=== PATIENT | male | born 1945 | race Caucasian/White ===

== ENCOUNTER 2025-03-27 11:32 | Observation (INO) | payer MEDICARE, OTHER ==
[2025-03-27 12:00] LABS: BASOPHILS ABSOLUTE AUTO 0.04 K/uL (0.00-0.20); BASOPHILS PERCENT AUTO 0.4 % (0.0-2.0); EOSINOPHILS ABSOLUTE AUTO 0.29 K/uL (0.00-0.50); EOSINOPHILS PERCENT AUTO 3.2 % (0.0-5.0); IMMATURE GRAN ABSOLUTE AUTO 0.06 10^3/uL (0.00-0.04); IMMATURE GRAN PERCENT AUTO 0.7 % (0.0-0.4); LYMPHOCYTES ABSOLUTE AUTO 1.31 K/uL (0.50-3.50); LYMPHOCYTES PERCENT AUTO 14.4 % (10.0-50.0); MONOCYTES ABSOLUTE AUTO 0.81 K/uL (0.00-1.00); MONOCYTES PERCENT AUTO 8.9 % (2.0-14.0); NEUTROPHILS ABSOLUTE AUTO 6.57 K/uL (1.40-7.00); NEUTROPHILS PERCENT AUTO 72.4 % (45.0-80.0); PLATELET COUNT,PLT 230 K/uL (150-350); RED BLOOD CELL COUNT 3.79 M/uL (4.33-5.41); RED CELL DISTRIBUTION WIDTH 15.1 % (11.2-14.1); WHITE BLOOD CELL COUNT,WBC 9.1 K/uL (4.0-10.2)
[2025-03-27 12:14] LABS: ALANINE AMINOTRANSFERASE,ALT 14 U/L (12-78); ASPARTATE AMNIOTRANSFERASE,AST 21 U/L (15-37); BILIRUBIN TOTAL 0.6 mg/dL (0.2-1.0); BLOOD UREA NITROGEN,BUN 23 mg/dL (7-18); CARBON DIOXIDE,CO2 23.9 mmol/L (21.0-32.0); CHLORIDE,CL 105 mmol/L (98-107); CREATININE 1.32 mg/dL (0.51-1.17); GLUCOSE RANDOM 114 mg/dL (70-99); POTASSIUM,K 4.2 mmol/L (3.5-5.1); PROTEIN TOTAL,TP 7.2 g/dL (6.4-8.2); SODIUM,NA 141 mmol/L (136-145)
[2025-03-27 12:15] LABS: ESTIMATED GFR 54 mL/min (>=60)
[2025-03-27 12:36] LABS: INR 2.0
[2025-03-27] MEDS: Ondansetron 4 MG/2 ML SDV IVPUSH ONE (12:55)
[2025-03-27] MEDS ORDERED: Ondansetron 4 MG/2 ML SDV IVPUSH PRN (14:06)
[2025-03-27] MEDS: Iopamidol 755 Mg/ML 100 ML Bottle IVPUSH ONE (16:14)
[2025-03-27] MEDS: Warfarin** 1 MG TABLET PO SCH (21:32)
[2025-03-28 07:07] LABS: BASOPHILS ABSOLUTE AUTO 0.03 K/uL (0.00-0.20); BASOPHILS PERCENT AUTO 0.4 % (0.0-2.0); EOSINOPHILS ABSOLUTE AUTO 0.17 K/uL (0.00-0.50); EOSINOPHILS PERCENT AUTO 2.5 % (0.0-5.0); IMMATURE GRAN ABSOLUTE AUTO 0.02 10^3/uL (0.00-0.04); IMMATURE GRAN PERCENT AUTO 0.3 % (0.0-0.4); LYMPHOCYTES ABSOLUTE AUTO 0.73 K/uL (0.50-3.50); LYMPHOCYTES PERCENT AUTO 10.7 % (10.0-50.0); MONOCYTES ABSOLUTE AUTO 0.68 K/uL (0.00-1.00); MONOCYTES PERCENT AUTO 9.9 % (2.0-14.0); NEUTROPHILS ABSOLUTE AUTO 5.22 K/uL (1.40-7.00); NEUTROPHILS PERCENT AUTO 76.2 % (45.0-80.0); PLATELET COUNT,PLT 189 K/uL (150-350); RED BLOOD CELL COUNT 3.48 M/uL (4.33-5.41); RED CELL DISTRIBUTION WIDTH 15.3 % (11.2-14.1); WHITE BLOOD CELL COUNT,WBC 6.9 K/uL (4.0-10.2)
[2025-03-28 07:28] VITALS: BP 103/68; PULSE 82
[2025-03-28 07:36] LABS: BLOOD UREA NITROGEN,BUN 23.0 mg/dL (7-18); CARBON DIOXIDE,CO2 25.7 mmol/L (21.0-32.0); CHLORIDE,CL 106.0 mmol/L (98-107); CREATININE 1.34 mg/dL (0.51-1.17); EST CRCL DRUG DOSING (CG) 44.64 mL/min; GLUCOSE RANDOM 97.0 mg/dL (70-99); POTASSIUM,K 3.5 mmol/L (3.5-5.1); SODIUM,NA 140.0 mmol/L (136-145)
[2025-03-28 07:44] LABS: ESTIMATED GFR 53.0 mL/min (>=60)
[2025-03-28] MEDS ORDERED: LEVOTHYROXINE SODIUM 137 MCG PO SCH (08:00)
[2025-03-28] MEDS: Warfarin** 1 MG TABLET PO SCH (09:07)
== END 2025-03-28 11:30 | disposition home or self-care (01) ==
LOC: LL.ED 11:32 → LL.MS 13:24
PROVIDERS: ADMIT Emergency Medicine; ATTEND Emergency Medicine
DX: S06.0XAA Concussion with loss of consciousness status unknown, initial encounter (principal); J44.9 Chronic obstructive pulmonary disease, unspecified; E03.9 Hypothyroidism, unspecified; I12.9 Hypertensive chronic kidney disease with stage 1 through stage 4 chronic kidney disease, or unspecified chronic kidney disease; N18.30 Chronic kidney disease, stage 3 unspecified; E66.9 Obesity, unspecified; Z79.890 Hormone replacement therapy; Z79.899 Other long term (current) drug therapy; W01.0XXA Fall on same level from slipping, tripping and stumbling without subsequent striking against object, initial encounter
CPT/HCPCS: 36415; 70450; 71046; 72040; 80048; 80053; 82947; 83605; 83735; 84484; 85025; 85379; 85610; 93005; 93010; 96361; 96374; 99223; 99238; 99285-25; A9270-GY; G0378; J2405; J7030

== ENCOUNTER 2025-04-20 11:03 | Emergency (ER) | payer MEDICARE, OTHER ==
[2025-04-20 11:20] LABS: BASOPHILS ABSOLUTE AUTO 0.02 K/uL (0.00-0.20); BASOPHILS PERCENT AUTO 0.2 % (0.0-2.0); EOSINOPHILS ABSOLUTE AUTO 0.09 K/uL (0.00-0.50); EOSINOPHILS PERCENT AUTO 0.7 % (0.0-5.0); IMMATURE GRAN ABSOLUTE AUTO 0.03 10^3/uL (0.00-0.04); IMMATURE GRAN PERCENT AUTO 0.2 % (0.0-0.4); LYMPHOCYTES ABSOLUTE AUTO 0.69 K/uL (0.50-3.50); LYMPHOCYTES PERCENT AUTO 5.5 % (10.0-50.0); MONOCYTES ABSOLUTE AUTO 0.58 K/uL (0.00-1.00); MONOCYTES PERCENT AUTO 4.6 % (2.0-14.0); NEUTROPHILS ABSOLUTE AUTO 11.09 K/uL (1.40-7.00); NEUTROPHILS PERCENT AUTO 88.8 % (45.0-80.0); PLATELET COUNT,PLT 292 K/uL (150-350); RED BLOOD CELL COUNT 4.05 M/uL (4.33-5.41); RED CELL DISTRIBUTION WIDTH 15.9 % (11.2-14.1); WHITE BLOOD CELL COUNT,WBC 12.5 K/uL (4.0-10.2)
[2025-04-20] MEDS ORDERED: Naloxone 0.4 MG/ML SDV IVPUSH PRN (11:21)
[2025-04-20 11:45] LABS: ALANINE AMINOTRANSFERASE,ALT 10 U/L (12-78); ASPARTATE AMNIOTRANSFERASE,AST 11 U/L (15-37); BILIRUBIN TOTAL 0.6 mg/dL (0.2-1.0); BLOOD UREA NITROGEN,BUN 31 mg/dL (7-18); CARBON DIOXIDE,CO2 20.1 mmol/L (21.0-32.0); CHLORIDE,CL 102 mmol/L (98-107); CREATININE 1.62 mg/dL (0.51-1.17); GLUCOSE RANDOM 117 mg/dL (70-99); POTASSIUM,K 4.2 mmol/L (3.5-5.1); PROTEIN TOTAL,TP 7.9 g/dL (6.4-8.2); PTT,PARTIAL THROMBOPLSTIN TIME 30.5 SEC (23.8-34.4); SODIUM,NA 138 mmol/L (136-145)
[2025-04-20 11:56] LABS: INR 2.9 (0.9-1.1)
[2025-04-20] MEDS: Sodium Chloride 0.9% 10 ML Syringe FLUSH PRN (12:01)
[2025-04-20 12:03] LABS: ESTIMATED GFR 42 mL/min (>=60)
[2025-04-20] MEDS: Ondansetron 4 MG/2 ML SDV IVPUSH ONE (12:59)
[2025-04-20] MEDS: Iopamidol 755 Mg/ML 100 ML Bottle IVPUSH ONE (13:39)
[2025-04-20 16:13] VITALS: BP 135/78; PULSE 95
== END 2025-04-20 14:12 ==
LOC: LL.ED 11:03
DX: S72.001A Fracture of unspecified part of neck of right femur, initial encounter for closed fracture (principal); D50.9 Iron deficiency anemia, unspecified; Z86.711 Personal history of pulmonary embolism; I12.9 Hypertensive chronic kidney disease with stage 1 through stage 4 chronic kidney disease, or unspecified chronic kidney disease; N18.9 Chronic kidney disease, unspecified; J44.9 Chronic obstructive pulmonary disease, unspecified; E03.9 Hypothyroidism, unspecified; Z79.890 Hormone replacement therapy; Z79.01 Long term (current) use of anticoagulants; Z86.73 Personal history of transient ischemic attack (TIA), and cerebral infarction without residual deficits; Z79.899 Other long term (current) drug therapy; W18.39XA Other fall on same level, initial encounter; Y93.89 Activity, other specified
CPT/HCPCS: 36415; 70450; 70496; 70498; 71045; 80053; 84443; 84484; 85025; 85610; 85730; 93005; 93010; 96361; 96374; 96375; 96376; 99284; 99285-25; J1171; J2405; J7030; J7040; Q9967

== ENCOUNTER 2025-05-02 12:45 | Inpatient (IN) | payer MEDICARE, OTHER ==
[2025-05-02] MEDS ORDERED: Ondansetron 4 MG Tab.DIS PO PRN (13:55)
[2025-05-03] MEDS: Polyethylene Glycol 3350 Powder 510 GM Bot PO SCH (08:31)
[2025-05-03] MEDS: Warfarin** 1 MG TABLET PO ONE (17:57)
[2025-05-04 08:25] LABS: INR 1.6 (0.9-1.1)
[2025-05-05 08:22] LABS: BASOPHILS ABSOLUTE AUTO 0.02 K/uL (0.00-0.20); BASOPHILS PERCENT AUTO 0.3 % (0.0-2.0); EOSINOPHILS ABSOLUTE AUTO 0.21 K/uL (0.00-0.50); EOSINOPHILS PERCENT AUTO 3.0 % (0.0-5.0); IMMATURE GRAN ABSOLUTE AUTO 0.08 10^3/uL (0.00-0.04); IMMATURE GRAN PERCENT AUTO 1.1 % (0.0-0.4); LYMPHOCYTES ABSOLUTE AUTO 0.70 K/uL (0.50-3.50); LYMPHOCYTES PERCENT AUTO 10.0 % (10.0-50.0); MONOCYTES ABSOLUTE AUTO 0.64 K/uL (0.00-1.00); MONOCYTES PERCENT AUTO 9.2 % (2.0-14.0); NEUTROPHILS ABSOLUTE AUTO 5.33 K/uL (1.40-7.00); NEUTROPHILS PERCENT AUTO 76.4 % (45.0-80.0); PLATELET COUNT,PLT 402 K/uL (150-350); RED BLOOD CELL COUNT 3.16 M/uL (4.33-5.41); RED CELL DISTRIBUTION WIDTH 18.8 % (11.2-14.1); WHITE BLOOD CELL COUNT,WBC 7.0 K/uL (4.0-10.2)
[2025-05-05] MEDS: Polyethylene Glycol 3350 Powder 510 GM Bot PO PRN (11:33)
[2025-05-05] MEDS: Warfarin** 1 MG TABLET PO SCH (17:17)
[2025-05-07] MEDS: Menthol 10%/Methyl Salicylate 15% 85 GM Tube TOP PRN
[2025-05-07 09:28] LABS: INR 2.0 (0.9-1.1)
[2025-05-07] MEDS: Warfarin** 1 MG TABLET PO SCH (17:39)
[2025-05-07] MEDS: REMOVE LIDOCAINE TRDERM SCH (20:32)
[2025-05-09 07:43] LABS: BASOPHILS ABSOLUTE AUTO 0.02 K/uL (0.00-0.20); BASOPHILS PERCENT AUTO 0.3 % (0.0-2.0); EOSINOPHILS ABSOLUTE AUTO 0.05 K/uL (0.00-0.50); EOSINOPHILS PERCENT AUTO 0.6 % (0.0-5.0); IMMATURE GRAN ABSOLUTE AUTO 0.02 10^3/uL (0.00-0.04); IMMATURE GRAN PERCENT AUTO 0.3 % (0.0-0.4); LYMPHOCYTES ABSOLUTE AUTO 0.46 K/uL (0.50-3.50); LYMPHOCYTES PERCENT AUTO 5.9 % (10.0-50.0); MONOCYTES ABSOLUTE AUTO 0.75 K/uL (0.00-1.00); MONOCYTES PERCENT AUTO 9.7 % (2.0-14.0); NEUTROPHILS ABSOLUTE AUTO 6.45 K/uL (1.40-7.00); NEUTROPHILS PERCENT AUTO 83.2 % (45.0-80.0); PLATELET COUNT,PLT 356 K/uL (150-350); RED BLOOD CELL COUNT 3.07 M/uL (4.33-5.41); RED CELL DISTRIBUTION WIDTH 19.1 % (11.2-14.1); WHITE BLOOD CELL COUNT,WBC 7.8 K/uL (4.0-10.2)
[2025-05-09 08:02] LABS: ALANINE AMINOTRANSFERASE,ALT 10.0 U/L (12-78); ASPARTATE AMNIOTRANSFERASE,AST 14.0 U/L (15-37); BILIRUBIN TOTAL 0.4 mg/dL (0.2-1.0); BLOOD UREA NITROGEN,BUN 16.0 mg/dL (7-18); CARBON DIOXIDE,CO2 26.6 mmol/L (21.0-32.0); CHLORIDE,CL 101.0 mmol/L (98-107); CREATININE 1.21 mg/dL (0.51-1.17); EST CRCL DRUG DOSING (CG) 48.6 mL/min; GLUCOSE RANDOM 93.0 mg/dL (70-99); POTASSIUM,K 4.4 mmol/L (3.5-5.1); PROTEIN TOTAL,TP 6.4 g/dL (6.4-8.2); SODIUM,NA 135.0 mmol/L (136-145)
[2025-05-09 08:03] LABS: ESTIMATED GFR 60.0 mL/min (>=60)
[2025-05-10 07:36] LABS: BASOPHILS ABSOLUTE AUTO 0.02 K/uL (0.00-0.20); BASOPHILS PERCENT AUTO 0.3 % (0.0-2.0); EOSINOPHILS ABSOLUTE AUTO 0.11 K/uL (0.00-0.50); EOSINOPHILS PERCENT AUTO 1.8 % (0.0-5.0); IMMATURE GRAN ABSOLUTE AUTO 0.03 10^3/uL (0.00-0.04); IMMATURE GRAN PERCENT AUTO 0.5 % (0.0-0.4); LYMPHOCYTES ABSOLUTE AUTO 0.60 K/uL (0.50-3.50); LYMPHOCYTES PERCENT AUTO 9.6 % (10.0-50.0); MONOCYTES ABSOLUTE AUTO 0.67 K/uL (0.00-1.00); MONOCYTES PERCENT AUTO 10.7 % (2.0-14.0); NEUTROPHILS ABSOLUTE AUTO 4.82 K/uL (1.40-7.00); NEUTROPHILS PERCENT AUTO 77.1 % (45.0-80.0); PLATELET COUNT,PLT 406 K/uL (150-350); RED BLOOD CELL COUNT 3.11 M/uL (4.33-5.41); RED CELL DISTRIBUTION WIDTH 19.3 % (11.2-14.1); WHITE BLOOD CELL COUNT,WBC 6.3 K/uL (4.0-10.2)
[2025-05-11 07:34] LABS: BASOPHILS ABSOLUTE AUTO 0.02 K/uL (0.00-0.20); BASOPHILS PERCENT AUTO 0.3 % (0.0-2.0); EOSINOPHILS ABSOLUTE AUTO 0.14 K/uL (0.00-0.50); EOSINOPHILS PERCENT AUTO 2.2 % (0.0-5.0); IMMATURE GRAN ABSOLUTE AUTO 0.03 10^3/uL (0.00-0.04); IMMATURE GRAN PERCENT AUTO 0.5 % (0.0-0.4); LYMPHOCYTES ABSOLUTE AUTO 0.75 K/uL (0.50-3.50); LYMPHOCYTES PERCENT AUTO 11.8 % (10.0-50.0); MONOCYTES ABSOLUTE AUTO 0.67 K/uL (0.00-1.00); MONOCYTES PERCENT AUTO 10.5 % (2.0-14.0); NEUTROPHILS ABSOLUTE AUTO 4.76 K/uL (1.40-7.00); NEUTROPHILS PERCENT AUTO 74.7 % (45.0-80.0); PLATELET COUNT,PLT 407 K/uL (150-350); RED BLOOD CELL COUNT 3.18 M/uL (4.33-5.41); RED CELL DISTRIBUTION WIDTH 19.4 % (11.2-14.1); WHITE BLOOD CELL COUNT,WBC 6.4 K/uL (4.0-10.2)
[2025-05-15 07:31] LABS: BASOPHILS ABSOLUTE AUTO 0.04 K/uL (0.00-0.20); BASOPHILS PERCENT AUTO 0.7 % (0.0-2.0); EOSINOPHILS ABSOLUTE AUTO 0.31 K/uL (0.00-0.50); EOSINOPHILS PERCENT AUTO 5.2 % (0.0-5.0); IMMATURE GRAN ABSOLUTE AUTO 0.14 10^3/uL (0.00-0.04); IMMATURE GRAN PERCENT AUTO 2.4 % (0.0-0.4); LYMPHOCYTES ABSOLUTE AUTO 0.95 K/uL (0.50-3.50); LYMPHOCYTES PERCENT AUTO 16.1 % (10.0-50.0); MONOCYTES ABSOLUTE AUTO 0.35 K/uL (0.00-1.00); MONOCYTES PERCENT AUTO 5.9 % (2.0-14.0); NEUTROPHILS ABSOLUTE AUTO 4.12 K/uL (1.40-7.00); NEUTROPHILS PERCENT AUTO 69.7 % (45.0-80.0); PLATELET COUNT,PLT 388 K/uL (150-350); RED BLOOD CELL COUNT 3.30 M/uL (4.33-5.41); RED CELL DISTRIBUTION WIDTH 19.2 % (11.2-14.1); WHITE BLOOD CELL COUNT,WBC 5.9 K/uL (4.0-10.2)
[2025-05-15 08:06] LABS: INR 3.5 (0.9-1.1)
[2025-05-16 09:31] LABS: INR 3.6
[2025-05-17 07:44] LABS: BASOPHILS ABSOLUTE AUTO 0.01 K/uL (0.00-0.20); BASOPHILS PERCENT AUTO 0.1 % (0.0-2.0); EOSINOPHILS ABSOLUTE AUTO 0.27 K/uL (0.00-0.50); EOSINOPHILS PERCENT AUTO 3.8 % (0.0-5.0); IMMATURE GRAN ABSOLUTE AUTO 0.07 10^3/uL (0.00-0.04); IMMATURE GRAN PERCENT AUTO 1.0 % (0.0-0.4); LYMPHOCYTES ABSOLUTE AUTO 1.08 K/uL (0.50-3.50); LYMPHOCYTES PERCENT AUTO 15.2 % (10.0-50.0); MONOCYTES ABSOLUTE AUTO 0.47 K/uL (0.00-1.00); MONOCYTES PERCENT AUTO 6.6 % (2.0-14.0); NEUTROPHILS ABSOLUTE AUTO 5.22 K/uL (1.40-7.00); NEUTROPHILS PERCENT AUTO 73.3 % (45.0-80.0); PLATELET COUNT,PLT 384 K/uL (150-350); RED BLOOD CELL COUNT 3.51 M/uL (4.33-5.41); RED CELL DISTRIBUTION WIDTH 19.1 % (11.2-14.1); WHITE BLOOD CELL COUNT,WBC 7.1 K/uL (4.0-10.2)
[2025-05-17 08:51] LABS: APPEARANCE,URINE CLOUDY; GLUCOSE,URINE NEGATIVE (NEGATIVE); OCCULT BLOOD,URINE TRACE-INTACT (NEGATIVE)
[2025-05-17 08:58] LABS: EPITHELIAL CELLS,URINE NOT SEEN /LPF
[2025-05-17 09:34] LABS: INR 2.2 (0.9-1.1)
[2025-05-21 10:02] LABS: INR 2.0
[2025-05-22 07:45] LABS: BASOPHILS ABSOLUTE AUTO 0.03 K/uL (0.00-0.20); BASOPHILS PERCENT AUTO 0.4 % (0.0-2.0); EOSINOPHILS ABSOLUTE AUTO 0.19 K/uL (0.00-0.50); EOSINOPHILS PERCENT AUTO 2.8 % (0.0-5.0); IMMATURE GRAN ABSOLUTE AUTO 0.03 10^3/uL (0.00-0.04); IMMATURE GRAN PERCENT AUTO 0.4 % (0.0-0.4); LYMPHOCYTES ABSOLUTE AUTO 0.73 K/uL (0.50-3.50); LYMPHOCYTES PERCENT AUTO 10.9 % (10.0-50.0); MONOCYTES ABSOLUTE AUTO 0.76 K/uL (0.00-1.00); MONOCYTES PERCENT AUTO 11.3 % (2.0-14.0); NEUTROPHILS ABSOLUTE AUTO 4.96 K/uL (1.40-7.00); NEUTROPHILS PERCENT AUTO 74.2 % (45.0-80.0); PLATELET COUNT,PLT 275 K/uL (150-350); RED BLOOD CELL COUNT 3.19 M/uL (4.33-5.41); RED CELL DISTRIBUTION WIDTH 19.2 % (11.2-14.1); WHITE BLOOD CELL COUNT,WBC 6.7 K/uL (4.0-10.2)
[2025-05-22] MEDS: Polyethylene Glycol 3350 Powder 510 GM Bot PO SCH (07:55)
[2025-05-25 08:07] LABS: INR 1.8 (0.9-1.1)
[2025-05-25 08:29] LABS: BASOPHILS ABSOLUTE AUTO 0.03 K/uL (0.00-0.20); BASOPHILS PERCENT AUTO 0.6 % (0.0-2.0); EOSINOPHILS ABSOLUTE AUTO 0.19 K/uL (0.00-0.50); EOSINOPHILS PERCENT AUTO 3.6 % (0.0-5.0); IMMATURE GRAN ABSOLUTE AUTO 0.01 10^3/uL (0.00-0.04); IMMATURE GRAN PERCENT AUTO 0.2 % (0.0-0.4); LYMPHOCYTES ABSOLUTE AUTO 0.61 K/uL (0.50-3.50); LYMPHOCYTES PERCENT AUTO 11.5 % (10.0-50.0); MONOCYTES ABSOLUTE AUTO 0.54 K/uL (0.00-1.00); MONOCYTES PERCENT AUTO 10.2 % (2.0-14.0); NEUTROPHILS ABSOLUTE AUTO 3.94 K/uL (1.40-7.00); NEUTROPHILS PERCENT AUTO 73.9 % (45.0-80.0); PLATELET COUNT,PLT 292 K/uL (150-350); RED BLOOD CELL COUNT 3.04 M/uL (4.33-5.41); RED CELL DISTRIBUTION WIDTH 19.0 % (11.2-14.1); WHITE BLOOD CELL COUNT,WBC 5.3 K/uL (4.0-10.2)
[2025-05-28 09:08] LABS: INR 2.4
[2025-05-29 07:58] LABS: BASOPHILS ABSOLUTE AUTO 0.03 K/uL (0.00-0.20); BASOPHILS PERCENT AUTO 0.5 % (0.0-2.0); EOSINOPHILS ABSOLUTE AUTO 0.25 K/uL (0.00-0.50); EOSINOPHILS PERCENT AUTO 4.3 % (0.0-5.0); IMMATURE GRAN ABSOLUTE AUTO 0.02 10^3/uL (0.00-0.04); IMMATURE GRAN PERCENT AUTO 0.3 % (0.0-0.4); LYMPHOCYTES ABSOLUTE AUTO 0.69 K/uL (0.50-3.50); LYMPHOCYTES PERCENT AUTO 12.0 % (10.0-50.0); MONOCYTES ABSOLUTE AUTO 0.57 K/uL (0.00-1.00); MONOCYTES PERCENT AUTO 9.9 % (2.0-14.0); NEUTROPHILS ABSOLUTE AUTO 4.20 K/uL (1.40-7.00); NEUTROPHILS PERCENT AUTO 73.0 % (45.0-80.0); PLATELET COUNT,PLT 227 K/uL (150-350); RED BLOOD CELL COUNT 3.42 M/uL (4.33-5.41); RED CELL DISTRIBUTION WIDTH 20.1 % (11.2-14.1); WHITE BLOOD CELL COUNT,WBC 5.8 K/uL (4.0-10.2)
[2025-06-04 07:29] LABS: BASOPHILS ABSOLUTE AUTO 0.03 K/uL (0.00-0.20); BASOPHILS PERCENT AUTO 0.5 % (0.0-2.0); EOSINOPHILS ABSOLUTE AUTO 0.29 K/uL (0.00-0.50); EOSINOPHILS PERCENT AUTO 4.8 % (0.0-5.0); IMMATURE GRAN ABSOLUTE AUTO 0.01 10^3/uL (0.00-0.04); IMMATURE GRAN PERCENT AUTO 0.2 % (0.0-0.4); LYMPHOCYTES ABSOLUTE AUTO 0.75 K/uL (0.50-3.50); LYMPHOCYTES PERCENT AUTO 12.5 % (10.0-50.0); MONOCYTES ABSOLUTE AUTO 0.60 K/uL (0.00-1.00); MONOCYTES PERCENT AUTO 10.0 % (2.0-14.0); NEUTROPHILS ABSOLUTE AUTO 4.31 K/uL (1.40-7.00); NEUTROPHILS PERCENT AUTO 72.0 % (45.0-80.0); PLATELET COUNT,PLT 226 K/uL (150-350); RED BLOOD CELL COUNT 3.32 M/uL (4.33-5.41); RED CELL DISTRIBUTION WIDTH 19.6 % (11.2-14.1); WHITE BLOOD CELL COUNT,WBC 6.0 K/uL (4.0-10.2)
[2025-06-04 09:27] LABS: INR 2.0 (0.9-1.1)
[2025-06-08 08:40] LABS: INR 2.0 (0.9-1.1)
[2025-06-08 08:57] VITALS: BP 101/61; PULSE 79
== END 2025-06-08 09:50 | disposition home health service (06) | DRG 560 ==
LOC: LL.SWG 12:45
PROVIDERS: ADMIT Physician Assistant; ATTEND Nurse Practitioner Family
DX: S72.001D Fracture of unspecified part of neck of right femur, subsequent encounter for closed fracture with routine healing (principal); D62 Acute posthemorrhagic anemia; E44.0 Moderate protein-calorie malnutrition; Z66 Do not resuscitate; N39.0 Urinary tract infection, site not specified; Z96.641 Presence of right artificial hip joint; W19.XXXD Unspecified fall, subsequent encounter; R13.12 Dysphagia, oropharyngeal phase; M25.78 Osteophyte, vertebrae; J44.9 Chronic obstructive pulmonary disease, unspecified; N18.30 Chronic kidney disease, stage 3 unspecified; E03.9 Hypothyroidism, unspecified; E66.9 Obesity, unspecified; R33.9 Retention of urine, unspecified; I12.9 Hypertensive chronic kidney disease with stage 1 through stage 4 chronic kidney disease, or unspecified chronic kidney disease; I95.1 Orthostatic hypotension; F32.A Depression, unspecified; Z86.711 Personal history of pulmonary embolism; Z79.01 Long term (current) use of anticoagulants; Z85.118 Personal history of other malignant neoplasm of bronchus and lung; Z86.73 Personal history of transient ischemic attack (TIA), and cerebral infarction without residual deficits; Z79.899 Other long term (current) drug therapy; Z68.27 Body mass index [BMI] 27.0-27.9, adult; Z90.89 Acquired absence of other organs; Z97.8 Presence of other specified devices
CPT/HCPCS: 36415; 36416; 80053; 81001; 83735; 85018; 85025; 85610; 87086; 87088; 87186; 92526-GN; 92610-GN; 93005; 97110-GO; 97110-GP; 97129-GO; 97140-GP; 97163-GP; 97166-GO; 97530-GO; 97530-GP; 97535-GO; 99306; A9270-GY

== ENCOUNTER 2025-08-03 09:13 | Emergency (ER) | payer MEDICARE, OTHER ==
[2025-08-03 09:38] LABS: BASOPHILS ABSOLUTE AUTO 0.01 K/uL (0.00-0.20); BASOPHILS PERCENT AUTO 0.1 % (0.0-2.0); EOSINOPHILS ABSOLUTE AUTO 0.02 K/uL (0.00-0.50); EOSINOPHILS PERCENT AUTO 0.1 % (0.0-5.0); IMMATURE GRAN ABSOLUTE AUTO 0.06 10^3/uL (0.00-0.04); IMMATURE GRAN PERCENT AUTO 0.3 % (0.0-0.4); LYMPHOCYTES ABSOLUTE AUTO 0.50 K/uL (0.50-3.50); LYMPHOCYTES PERCENT AUTO 2.8 % (10.0-50.0); MONOCYTES ABSOLUTE AUTO 0.87 K/uL (0.00-1.00); MONOCYTES PERCENT AUTO 4.9 % (2.0-14.0); NEUTROPHILS ABSOLUTE AUTO 16.28 K/uL (1.40-7.00); NEUTROPHILS PERCENT AUTO 91.8 % (45.0-80.0); PLATELET COUNT,PLT 269 K/uL (150-350); RED BLOOD CELL COUNT 3.28 M/uL (4.33-5.41); RED CELL DISTRIBUTION WIDTH 19.2 % (11.2-14.1); WHITE BLOOD CELL COUNT,WBC 17.7 K/uL (4.0-10.2)
[2025-08-03 09:57] LABS: LACTIC ACID 4.8 mmol/L (0.4-2.0)
[2025-08-03 10:03] LABS: INR 1.7 (0.9-1.1); PTT,PARTIAL THROMBOPLSTIN TIME 25.4 SEC (23.8-34.4)
[2025-08-03 10:05] LABS: ALANINE AMINOTRANSFERASE,ALT 12 U/L (12-78); ASPARTATE AMNIOTRANSFERASE,AST 17 U/L (15-37); BILIRUBIN TOTAL 0.5 mg/dL (0.2-1.0); BLOOD UREA NITROGEN,BUN 24 mg/dL (7-18); CARBON DIOXIDE,CO2 19.0 mmol/L (21.0-32.0); CHLORIDE,CL 107 mmol/L (98-107); CREATINE KINASE,CK 84 U/L (26-308); CREATININE 1.42 mg/dL (0.51-1.17); GLUCOSE RANDOM 121 mg/dL (70-99); POTASSIUM,K 3.9 mmol/L (3.5-5.1); PROTEIN TOTAL,TP 7.1 g/dL (6.4-8.2); SODIUM,NA 142 mmol/L (136-145)
[2025-08-03 10:06] LABS: ESTIMATED GFR 49 mL/min (>=60)
[2025-08-03] MEDS: Lactated Ringers 1,000 ML IV SCH (10:25)
[2025-08-03] MEDS: fentaNYL 50 MCG/ML SDV IVPUSH ONE (10:26)
[2025-08-03] MEDS: Lidocaine 2% HCl 11 ML Jelly Filled Syringe TOP ONE (11:14)
[2025-08-03] MEDS: Sodium Chloride 0.9% 10 ML Syringe FLUSH PRN (11:40)
[2025-08-03 11:52] LABS: APPEARANCE,URINE TURBID; GLUCOSE,URINE NEGATIVE (NEGATIVE); OCCULT BLOOD,URINE TRACE-INTACT (NEGATIVE)
[2025-08-03] MEDS: fentaNYL 50 MCG/ML SDV ONE (11:57)
== END 2025-08-03 11:50 ==
LOC: LL.ED 09:13
DX: S72.002A Fracture of unspecified part of neck of left femur, initial encounter for closed fracture (principal); S42.202A Unspecified fracture of upper end of left humerus, initial encounter for closed fracture; S32.512A Fracture of superior rim of left pubis, initial encounter for closed fracture; J44.9 Chronic obstructive pulmonary disease, unspecified; E03.9 Hypothyroidism, unspecified; E66.9 Obesity, unspecified; I12.9 Hypertensive chronic kidney disease with stage 1 through stage 4 chronic kidney disease, or unspecified chronic kidney disease; N18.30 Chronic kidney disease, stage 3 unspecified; Z79.01 Long term (current) use of anticoagulants; Z79.890 Hormone replacement therapy; Z79.899 Other long term (current) drug therapy; W18.2XXA Fall in (into) shower or empty bathtub, initial encounter; Y92.129 Unspecified place in nursing home as the place of occurrence of the external cause
CPT/HCPCS: 36415; 70450; 71045; 73030-LT; 80053; 81001; 82550; 83605; 83735; 85025; 85610; 85730; 86140; 93005; 93010; 96361; 96374; 99284; 99285-25; A9270-GY; J3010; J7120